=== PATIENT | male | born 1965 ===

== ENCOUNTER 2020-09-07 15:58 | Inpatient (IN) | payer OTHER ==
[2020-09-07] MEDS ORDERED: ACETAMINOPHEN 325 MG TAB ONE (16:21)
[2020-09-07] MEDS ORDERED: ACETAMINOPHEN 325 MG TAB PO ONE (16:25)
--- NOTE | 2020-09-07 17:28 | XRay Report ---
CHEST 2 VIEWS INDICATION / CLINICAL INFORMATION: SOB, COVID+. COMPARISON: None available. FINDINGS: SUPPORT DEVICES: None. HEART / MEDIASTINUM: Upper limits normal heart size. Mediastinal and hilar contours demonstrate no si gnificant abnormality. LUNGS / PLEURA: Irregular patchy and confluent pulmonary opacities worse at the lung bases and around the periphery. No significant effusion. No pneumothorax. ADDITIONAL FINDINGS: No significant additional findings. IMPRESSION: 1. Diffuse bilateral pulmonary airspace disease. Pattern is concerning for atypical/viral pneumonia. Recommend clinical correlation and continued follow-up until resolution. Signer Name: Bulmaro Reddy MD Signed: 09/07/2020 5:23 PM Workstation Name: [id number]
--- NOTE | 2020-09-07 18:58 | Emergency Department Report ---
- General Chief Complaint: Dyspnea/Respdistress Stated Complaint: FEVER PUI?: Yes Source: patient Mode of arrival: Wheelchair Limitations: No Limitations - History of Present Illness Initial Comments: The patient was evaluated in the emergency department for symptoms described in the history of present illness. He/she was evaluated in the context of the global COVID-19 pandemic, which necessitated consideration that the patient might be at risk for infection with the virus that causes COVID-19. Institutional protocols and algorithms that pertain to the evaluation of patients at risk for COVID-19 are in a state of rapid change based on information released by regulatory bodies including the CDC and federal and state organizations. These policies and algorithms were followed during the patient's care in the emergency department. Please note that these policies, procedures and recommendations changed on a rapid basis. 55-year-old male presents to the emergency room for shortness of breath. Patient was recently seen today at [facility] had a negative Covid test but was satting around 87% and was referred for to the emergency room via EMS. Patient denies any past medical history. He states he has been having shortness of breath and difficulty breathing for 1 week. He has had a fever for 4 days. He denies any nausea no vomiting no constipation or diarrhea. Patient denies any past medical history currently takes no medications and has had no known drug allergies. Patient has no surgical history. Patient is and use [employer] patient liaison to translate. His phone number I received was [phone]. His next of contact is Bogdan [phone]. Complaint: fever Onset/Timin -: week(s) Consistency: constant Improves With: nothing Worsens With: nothing Associated Symptoms: fever, shortness of breath. denies: nausea, vomiting, diarrhea Treatments Prior to Arrival: none - Related Data Allergies Allergy/AdvReac Type Severity Reaction Status Date / Time No Known Allergies Allergy Unverified 09/07/20 16:24 ED Review of Systems ROS: Stated complaint: FEVER Other details as noted in HPI Comment: All other systems reviewed and negative ED Past Medical Hx - Past Medical History Previous Medical History?: No - Surgical History Past Surgical History?: No ED Physical Exam - General Limitations: No Limitations General appearance: alert, in no apparent distress - Head Head exam: Present: atraumatic, normocephalic - Eye Eye exam: Present: normal appearance - ENT ENT exam: Present: mucous membranes moist - Respiratory Respiratory exam: Absent: accessory muscle use - Cardiovascular Cardiovascular Exam: Present: regular rate - Neurological Exam Neurological exam: Present: alert, oriented X3, normal gait - Psychiatric Psychiatric exam: Present: normal affect, normal mood - Skin Skin exam: Present: warm, dry, intact, normal color. Absent: rash ED Course Vital Signs 09/07/20 09/07/20 16:14 16:26 Temperature 101.5 F H 101.5 F H Pulse Rate 96 H 83 Respiratory 22 20 Rate Blood Pressure 124/63 Blood Pressure 124/63 [Right] O2 Sat by Pulse 88 87 Oximetry ED Medical Decision Making - Medical Decision Making 55-year-old male presents to the emergency room for shortness of breath. [facility] had a negative Covid test but was satting around 87% and was referred for to the emergency room via EMS. Patient denies any past medical history. He states he has been having shortness of breath and difficulty breathing for 1 week. He has had a fever for 4 days. He denies any nausea no vomiting no constipation or diarrhea. Patient denies any past medical history currently takes no medications and has had no known drug allergies. Patient has no surgical history. Patient is and use [employer] patient liaison to translate. His phone number I received was [phone]. His next of contact is Bogdan [phone]. Critical care attestation.: If time is entered above; I have spent that time in minutes in the direct care of this critically ill patient, excluding procedure time. ED Disposition Clinical Impression: Hypoxic, Suspected 2019 novel coronavirus infection, Shortness of breath Disposition: OP ADMIT IP TO THIS HOSP Is pt being admited?: Yes Does the pt Need Aspirin: Yes Condition: Stable
[2020-09-07 19:04] LABS: Basophils % (Auto) 0.2 % (0.0-1.8); Eosinophils % (Auto) 0.1 % (0.0-4.3); Hematocrit 44.1 % (35.5-45.6); Hemoglobin 15.2 gm/dl (11.8-15.2); Lymphocytes # (Auto) 1.2 K/mm3 (1.2-5.4); Lymphocytes % (Auto) 9.6 % (13.4-35.0); Mean Corpuscular HGB Conc 35 % (32-34); Mean Corpuscular Volume 94 fl (84-94); Monocytes # (Auto) 1.2 K/mm3 (0.0-0.8); Monocytes % (Auto) 10.2 % (0.0-7.3); Platelet Count 210 K/mm3 (140-440); Red Cell Distribution Width 13.9 % (13.2-15.2)
[2020-09-07] MEDS ORDERED: AZITHROMYCIN 500 MG in SODIUM CHLORIDE 0.9% 250ML 250 ML IV ONE (19:19)
[2020-09-07] MEDS ORDERED: dexAMETHasone 4 MG/ML VIAL IV ONE (19:19)
[2020-09-07] MEDS ORDERED: SODIUM CHLORIDE 0.9% 1000 ML 1,000 ML IV ONE (19:23)
[2020-09-07 19:24] LABS: ABG Base Excess 4.7 mmol/L (-2.0-3.0); ABG HCO3 29.7 mmol/L (20.0-26.0); ABG Methemoglobin 0.6 % (0.0-1.5); ABG Oxygen Saturation 91.8 % (95.0-99.0); ABG PCO2 44.9 mm Hg; ABG PH 7.438 pH Units (7.350-7.450); ABG PO2 58.1 mm Hg (80.0-90.0)
[2020-09-07 19:33] LABS: Alanine Aminotransferase 41 units/L (7-56); Albumin 3.8 g/dL (3.9-5); BUN/Creatinine Ratio 15; Blood Urea Nitrogen 12 mg/dL (9-20); Calcium 8.8 mg/dL (8.4-10.2)
--- NOTE | 2020-09-08 05:14 | History and Physical Report ---
History of Present Illness Date of examination: 09/07/20 Date of admission: 09/07/20 19:04 Chief complaint: Cough and fever History of present illness: 55-year-old Nauruan-speaking male with no significant past medical history sent by a [place] clinic for shortness of breath and low oxygen saturations. Apparently the client texted him for coronavirus and was negative. Patient has ran shortness of breath for 1 week. Fever on and off for 4 days. No nausea no vomiting. No constipation or diarrhea. Patient is not on any medications. Her main complaint is shortness of breath and fever for 1 week. No exacerbating or relieving factors. - Past Medical History Previous Medical History?: No - Surgical History Past Surgical History?: No Social history no smoking, alcohol occasionally Family history nothing contributory [employer] ROS: Constitutional fever for 4 days. HEENT no sore throat no post nasal drip no diplopia Neck no neck stiffness no lymph gland enlargement Chest and lungs shortness of breath present. For 1 week. Cough present. CVS no chest pain no diaphoresis no palpitations GI no nausea no vomiting no diarrhea Genitourinary system no dysuria no flank pain Musculoskeletal system no muscle pains no joint pains [employer] no syncope no seizures Skin no rash no itching Psychiatric no depression no homicidal or suicidal tendencies Hematologic no lymphedema or bruising Endocrine no polydipsia no polyuria no cold intolerance no heat intolerance Medications and Allergies Allergies Allergy/AdvReac Type Severity Reaction Status Date / Time No Known Allergies Allergy Verified 09/07/20 19:23 Exam - Constitutional Vitals: Temp Pulse Resp BP Pulse Ox 98.8 F 76 22 125/76 97 09/07/20 20:41 09/08/20 04:53 09/08/20 04:53 09/08/20 04:53 09/08/20 04:53 General appearance: Present: mild distress, well-nourished - EENT Eyes: Present: PERRL ENT: hearing intact, clear oral mucosa - Neck Neck: Present: supple, normal ROM - Respiratory Respiratory effort: normal Respiratory: bilateral: CTA, rhonchi (Scattered) - Cardiovascular Heart rate: 100 Rhythm: regular Heart Sounds: Present: S1 & S2. Absent: rub, click - Extremities Extremities: pulses symmetrical, No edema Peripheral Pulses: within normal limits - Abdominal General gastrointestinal: Present: soft, non-tender, non-distended, normal bowel sounds Male genitourinary: Present: normal - Integumentary Integumentary: Present: clear, warm, dry - Musculoskeletal Musculoskeletal: gait normal, strength equal bilaterally - Psychiatric Psychiatric: appropriate mood/affect, intact judgment & insight - Neurologic Neurologic: CNII-XII intact, moves all extremities - Allied Health Allied health notes reviewed: nursing, case management Results - Labs CBC & Chem 7: 09/07/20 18:47 09/07/20 18:47 Labs: Laboratory Last Values WBC 12.0 K/mm3 (4.5-11.0) H 09/07/20 18:47 RBC 4.70 M/mm3 (3.65-5.03) 09/07/20 18:47 Hgb 15.2 gm/dl (11.8-15.2) 09/07/20 18:47 Hct 44.1 % (35.5-45.6) 09/07/20 18:47 MCV 94 fl (84-94) 09/07/20 18:47 MCH 32 pg (28-32) 09/07/20 18:47 MCHC 35 % (32-34) H 09/07/20 18:47 RDW 13.9 % (13.2-15.2) 09/07/20 18:47 Plt Count 210 K/mm3 (140-440) 09/07/20 18:47 Lymph % (Auto) 9.6 % (13.4-35.0) L 09/07/20 18:47 Sebastian % (Auto) 10.2 % (0.0-7.3) H 09/07/20 18:47 Eos % (Auto) 0.1 % (0.0-4.3) 09/07/20 18:47 Baso % (Auto) 0.2 % (0.0-1.8) 09/07/20 18:47 Lymph # (Auto) 1.2 K/mm3 (1.2-5.4) 09/07/20 18:47 Sebastian # (Auto) 1.2 K/mm3 (0.0-0.8) H 09/07/20 18:47 Eos # (Auto) 0.0 K/mm3 (0.0-0.4) 09/07/20 18:47 Baso # (Auto) 0.0 K/mm3 (0.0-0.1) 09/07/20 18:47 Seg Neutrophils % 79.9 % (40.0-70.0) H 09/07/20 18:47 Seg Neutrophils # 9.6 K/mm3 (1.8-7.7) H 09/07/20 18:47 D-Dimer 276.17 ng/mlDDU (0-234) H 09/07/20 18:47 ABG pH 7.438 pH Units (7.350-7.450) 09/07/20 19:10 ABG pCO2 44.9 mm Hg 09/07/20 19:10 ABG pO2 58.1 mm Hg (80.0-90.0) L 09/07/20 19:10 ABG HCO3 29.7 mmol/L (20.0-26.0) H 09/07/20 19:10 ABG O2 Saturation 91.8 % (95.0-99.0) L 09/07/20 19:10 ABG O2 Content 19.3 (0.0-44) 09/07/20 19:10 ABG Base Excess 4.7 mmol/L (-2.0-3.0) H 09/07/20 19:10 ABG Hemoglobin 15.3 gm/dl (14.0-18.0) 09/07/20 19:10 ABG Carboxyhemoglobin 1.7 % (0.0-5.0) 09/07/20 19:10 ABG Methemoglobin 0.6 % (0.0-1.5) 09/07/20 19:10 Oxyhemoglobin 89.7 % (95.0-99.0) L 09/07/20 19:10 FiO2 21 % 09/07/20 19:10 Sodium 134 mmol/L (137-145) L 09/07/20 18:47 Potassium 4.2 mmol/L (3.6-5.0) 09/07/20 18:47 Chloride 94.3 mmol/L (98-107) L 09/07/20 18:47 Carbon Dioxide 29 mmol/L (22-30) 09/07/20 18:47 Anion Gap 15 mmol/L 09/07/20 18:47 BUN 12 mg/dL (9-20) 09/07/20 18:47 Creatinine 0.8 mg/dL (0.8-1.3) 09/07/20 18:47 Estimated GFR > 60 ml/min 09/07/20 18:47 BUN/Creatinine Ratio 15 % 09/07/20 18:47 Glucose 121 mg/dL (75-100) H 09/07/20 18:47 Glucose 121 mg/dL (75-100) H 09/07/20 18:47 Calcium 8.8 mg/dL (8.4-10.2) 09/07/20 18:47 Ferritin 837.3 ng/mL (30.0-300.0) H 09/07/20 18:47 Total Bilirubin 0.60 mg/dL (0.1-1.2) 09/07/20 18:47 AST 37 units/L (5-40) 09/07/20 18:47 ALT 41 units/L (7-56) 09/07/20 18:47 Alkaline Phosphatase 106 units/L (35-129) 09/07/20 18:47 Lactate Dehydrogenase 455 units/L (91-180) H 09/07/20 18:47 C-Reactive Protein 14.00 mg/dL (0.00-1.30) H 09/07/20 18:47 Total Protein 7.1 g/dL (6.3-8.2) 09/07/20 18:47 Albumin 3.8 g/dL (3.9-5) L 09/07/20 18:47 Albumin/Globulin Ratio 1.2 % 09/07/20 18:47 Acetaminophen 12.3 ug/mL (10.0-30.0) 09/07/20 16:55 - Imaging and Cardiology EKG: report reviewed Chest x-ray: report reviewed Imaging and Cardiology: Chest x-ray Diffuse bilateral pulmonary airspace disease Pattern is concerning for atypical/viral pneumonia Recommend clinical correlation and continued follow-up with resolution Assessment and Plan Advance Directives: Yes (Full code) VTE prophylaxis?: Chemical Plan of care discussed with patient/family: Yes - Patient Problems (1) Acute respiratory failure with hypoxia Current Visit: Yes Status: Acute Plan to address problem: Patient needs oxygen supplementation and titrate to keep oxygen saturation around 95% and more Possible coronavirus infection Treat with antibiotics for possible community-acquired pneumonia even though unlikely Patient started on IV dexamethasone 8 mg daily (2) Suspected 2019 novel coronavirus infection Current Visit: Yes Status: Acute Plan to address problem: Coronavirus PCR) as per protocol ID consult requested (3) Bilateral pneumonia Current Visit: Yes Status: Acute Plan to address problem: Patient started on IV Zithromax and IV Rocephin Can be stopped if procalcitonin is normal (4) Obesity Current Visit: Yes Status: Chronic Qualifiers: Obesity type: due to excess calories Plan to address problem: Patient to follow-up with bariatric surgery as outpatient (5) Hyponatremia Current Visit: Yes Status: Acute Plan to address problem: Very mild (6) DVT prophylaxis Current Visit: Yes Status: Acute Plan to address problem: On Lovenox and GI prophylaxis
[2020-09-08] MEDS ORDERED: ONDANSETRON 4 MG/2 ML INJ IV PRN (05:24)
[2020-09-08] MEDS ORDERED: oxyCODONE /ACETAMINOPHEN 5-325MG TAB PO PRN (05:24)
[2020-09-08] MEDS ORDERED: HYDROmorphone 1 MG/1 ML INJ IV PRN (05:24)
[2020-09-08 07:02] LABS: Basophils % (Auto) 0.1 % (0.0-1.8); Hematocrit 43.1 % (35.5-45.6); Hemoglobin 14.7 gm/dl (11.8-15.2); Lymphocytes # (Auto) 0.7 K/mm3 (1.2-5.4); Lymphocytes % (Auto) 5.7 % (13.4-35.0); Mean Corpuscular HGB Conc 34 % (32-34); Mean Corpuscular Volume 94 fl (84-94); Monocytes # (Auto) 0.7 K/mm3 (0.0-0.8); Monocytes % (Auto) 5.3 % (0.0-7.3); Platelet Count 210 K/mm3 (140-440); Red Cell Distribution Width 13.4 % (13.2-15.2)
[2020-09-08 07:04] LABS: Alanine Aminotransferase 36 units/L (7-56); Albumin 3.6 g/dL (3.9-5); BUN/Creatinine Ratio 18; Blood Urea Nitrogen 14 mg/dL (9-20); Calcium 8.8 mg/dL (8.4-10.2); Hemolysis Index 2
[2020-09-08] MEDS ORDERED: dexAMETHasone 4 MG/ML VIAL IV SCH (10:00)
[2020-09-08] MEDS ORDERED: AZITHROMYCIN 500 MG in SODIUM CHLORIDE 0.9% 250ML 250 ML IV SCH (10:00)
[2020-09-08] MEDS: dexAMETHasone 4 MG/ML VIAL IV SCH (10:50)
[2020-09-08] MEDS: FAMOTIDINE 20 MG TAB PO SCH ×2 (10:50→22:35)
[2020-09-08] MEDS: cefTRIAXone/NS 2 GM/100 ML 2 GM/100 ML BAG IV SCH (10:50)
[2020-09-08] MEDS: ASCORBIC ACID 500 MG TAB PO SCH ×2 (10:51→22:35)
[2020-09-08] MEDS: CHOLECALCIFEROL (VIT D3) 5,000 UNIT TAB PO SCH (10:51)
[2020-09-08] MEDS: ACETAMINOPHEN 325 MG TAB PO PRN (10:55)
--- NOTE | 2020-09-08 17:12 | Progress Note ---
Assessment and Plan - Patient Problems (1) Acute respiratory failure with hypoxia Current Visit: Yes Status: Acute Plan to address problem: Secondary to COVID-19 pneumonia. Oxygenating well. Currently on dexamethasone. 3 L of oxygen. Follow inflammatory markers supportive care. (2) Bilateral pneumonia Current Visit: Yes Status: Acute Plan to address problem: Bilateral pneumonia secondary to COVID-19. Patient currently on dexamethasone. Oxygenating well at 3 L currently. (3) Hyponatremia Current Visit: Yes Status: Acute (4) Obesity Current Visit: Yes Status: Chronic Qualifiers: Obesity type: due to excess calories Body mass index: BMI 33.0-33.9 Plan to address problem: Stressed importance of weight loss discussed risk of obesity and COVID-19. Subjective Date of service: 09/08/20 Principal diagnosis: COVID-19 pneumonia acute respiratory failure. Interval history: Patient feels much better today. Improved breathing. Patient currently at 3 L of O2. Seem to be tolerating well. No new concerns over p.m. If patient maintains oxygenation tomorrow will have him walk and evaluate need for home O2. Objective - Constitutional Vitals: Vital Signs - 12hr 09/08/20 09/08/20 09/08/20 05:11 05:21 05:31 Temperature Pulse Rate Respiratory Rate Blood Pressure 125/76 125/76 125/76 O2 Sat by Pulse 97 95 95 Oximetry 09/08/20 09/08/20 09/08/20 05:41 05:51 06:01 Temperature Pulse Rate Respiratory Rate Blood Pressure 125/76 125/76 125/76 O2 Sat by Pulse 95 94 95 Oximetry 09/08/20 09/08/20 09/08/20 06:11 06:21 06:31 Temperature Pulse Rate Respiratory Rate Blood Pressure 125/76 125/76 125/76 O2 Sat by Pulse 95 95 95 Oximetry 09/08/20 09/08/20 09/08/20 08:00 08:50 12:21 Temperature 98.8 F Pulse Rate 81 91 H Respiratory 18 16 18 Rate Blood Pressure 113/53 110/60 O2 Sat by Pulse 92 94 Oximetry General appearance: Present: no acute distress, well-nourished - EENT Eyes: PERRL, EOM intact ENT: hearing intact, clear oral mucosa Ears: bilateral: normal - Neck Neck: supple, normal ROM - Respiratory Respiratory effort: normal Respiratory: bilateral: CTA, negative: diminished - Breasts Breasts: normal - Cardiovascular Rhythm: regular Heart Sounds: Present: S1 & S2. Absent: gallop, rub Extremities: pulses intact, No edema, normal color, Full ROM - Gastrointestinal General gastrointestinal: Present: soft, non-tender, non-distended, normal bowel sounds - Genitourinary Male genitourinary: normal - Integumentary Integumentary: clear, warm, dry - Musculoskeletal Musculoskeletal: 1, strength equal bilaterally - Neurologic Neurologic: moves all extremities - Psychiatric Psychiatric: memory intact, appropriate mood/affect, intact judgment & insight - Labs CBC & Chem 7: 09/08/20 05:43 09/08/20 05:43 Labs: Abnormal lab results 09/07/20 09/07/20 09/07/20 Range/Units 18:47 18:47 18:47 WBC 12.0 H (4.5-11.0) K/mm3 MCHC 35 H (32-34) % Lymph % (Auto) 9.6 L (13.4-35.0) % Armstrong % (Auto) 10.2 H (0.0-7.3) % Lymph # (Auto) (1.2-5.4) K/mm3 Armstrong # (Auto) 1.2 H (0.0-0.8) K/mm3 Seg Neutrophils % 79.9 H (40.0-70.0) % Seg Neutrophils # 9.6 H (1.8-7.7) K/mm3 D-Dimer 276.17 H (0-234) ng/mlDDU ABG pO2 (80.0-90.0) mm Hg ABG HCO3 (20.0-26.0) mmol/L ABG O2 Saturation (95.0-99.0) % ABG Base Excess (-2.0-3.0) mmol/L Oxyhemoglobin (95.0-99.0) % Sodium 134 L (137-145) mmol/L Chloride 94.3 L (98-107) mmol/L Carbon Dioxide (22-30) mmol/L Glucose 121 H (75-100) mg/dL Hemoglobin A1c (4-6) % Ferritin (30.0-300.0) ng/mL Lactate Dehydrogenase (91-180) units/L C-Reactive Protein (0.00-1.30) mg/dL Albumin 3.8 L (3.9-5) g/dL Coronavirus (PCR) (Negative) 09/07/20 09/07/20 09/07/20 Range/Units 18:47 18:47 19:10 WBC (4.5-11.0) K/mm3 MCHC (32-34) % Lymph % (Auto) (13.4-35.0) % Armstrong % (Auto) (0.0-7.3) % Lymph # (Auto) (1.2-5.4) K/mm3 Armstrong # (Auto) (0.0-0.8) K/mm3 Seg Neutrophils % (40.0-70.0) % Seg Neutrophils # (1.8-7.7) K/mm3 D-Dimer (0-234) ng/mlDDU ABG pO2 58.1 L (80.0-90.0) mm Hg ABG HCO3 29.7 H (20.0-26.0) mmol/L ABG O2 Saturation 91.8 L (95.0-99.0) % ABG Base Excess 4.7 H (-2.0-3.0) mmol/L Oxyhemoglobin 89.7 L (95.0-99.0) % Sodium (137-145) mmol/L Chloride (98-107) mmol/L Carbon Dioxide (22-30) mmol/L Glucose 121 H (75-100) mg/dL Hemoglobin A1c (4-6) % Ferritin 837.3 H (30.0-300.0) ng/mL Lactate Dehydrogenase 455 H (91-180) units/L C-Reactive Protein 14.00 H (0.00-1.30) mg/dL Albumin (3.9-5) g/dL Coronavirus (PCR) (Negative) 09/08/20 09/08/20 09/08/20 Range/Units 05:43 05:43 05:43 WBC 12.8 H (4.5-11.0) K/mm3 MCHC (32-34) % Lymph % (Auto) 5.7 L (13.4-35.0) % Armstrong % (Auto) (0.0-7.3) % Lymph # (Auto) 0.7 L (1.2-5.4) K/mm3 Armstrong # (Auto) (0.0-0.8) K/mm3 Seg Neutrophils % 88.9 H (40.0-70.0) % Seg Neutrophils # 11.4 H (1.8-7.7) K/mm3 D-Dimer (0-234) ng/mlDDU ABG pO2 (80.0-90.0) mm Hg ABG HCO3 (20.0-26.0) mmol/L ABG O2 Saturation (95.0-99.0) % ABG Base Excess (-2.0-3.0) mmol/L Oxyhemoglobin (95.0-99.0) % Sodium (137-145) mmol/L Chloride (98-107) mmol/L Carbon Dioxide 34 H (22-30) mmol/L Glucose 214 H (75-100) mg/dL Hemoglobin A1c 6.7 H (4-6) % Ferritin (30.0-300.0) ng/mL Lactate Dehydrogenase (91-180) units/L C-Reactive Protein (0.00-1.30) mg/dL Albumin 3.6 L (3.9-5) g/dL Coronavirus (PCR) (Negative) 09/08/20 Range/Units 11:04 WBC (4.5-11.0) K/mm3 MCHC (32-34) % Lymph % (Auto) (13.4-35.0) % Armstrong % (Auto) (0.0-7.3) % Lymph # (Auto) (1.2-5.4) K/mm3 Armstrong # (Auto) (0.0-0.8) K/mm3 Seg Neutrophils % (40.0-70.0) % Seg Neutrophils # (1.8-7.7) K/mm3 D-Dimer (0-234) ng/mlDDU ABG pO2 (80.0-90.0) mm Hg ABG HCO3 (20.0-26.0) mmol/L ABG O2 Saturation (95.0-99.0) % ABG Base Excess (-2.0-3.0) mmol/L Oxyhemoglobin (95.0-99.0) % Sodium (137-145) mmol/L Chloride (98-107) mmol/L Carbon Dioxide (22-30) mmol/L Glucose (75-100) mg/dL Hemoglobin A1c (4-6) % Ferritin (30.0-300.0) ng/mL Lactate Dehydrogenase (91-180) units/L C-Reactive Protein (0.00-1.30) mg/dL Albumin (3.9-5) g/dL Coronavirus (PCR) Positive A (Negative)
[2020-09-08] MEDS: ENOXAPARIN 40 MG/0.4 ML INJ SUB-Q SCH (22:36)
[2020-09-09] MEDS ORDERED: AZITHROMYCIN 250 MG TAB PO SCH (10:00)
[2020-09-09] MEDS: cefTRIAXone/NS 2 GM/100 ML 2 GM/100 ML BAG IV SCH (10:43)
[2020-09-09] MEDS: dexAMETHasone 4 MG/ML VIAL IV SCH (10:43)
[2020-09-09] MEDS: FAMOTIDINE 20 MG TAB PO SCH ×2 (10:43→21:09)
[2020-09-09] MEDS: ASCORBIC ACID 500 MG TAB PO SCH ×2 (10:44→21:08)
[2020-09-09] MEDS: CHOLECALCIFEROL (VIT D3) 5,000 UNIT TAB PO SCH (10:44)
[2020-09-09] MEDS: ACETAMINOPHEN 325 MG TAB PO PRN (15:29)
--- NOTE | 2020-09-09 16:05 | Progress Note ---
Assessment and Plan - Patient Problems (1) Acute respiratory failure with hypoxia Current Visit: Yes Status: Acute Plan to address problem: Secondary to COVID-19 pneumonia. Oxygenating well. Currently on dexamethasone. 3 L of oxygen. Follow inflammatory markers supportive care. Anticipate discharge in a.m. (2) Bilateral pneumonia Current Visit: Yes Status: Acute Plan to address problem: Bilateral pneumonia secondary to COVID-19. Patient currently on dexamethasone. Oxygenating well at 3 L currently. Will discontinue antibiotics. Change to p.o . dexamethasone. Anticipate discharge in a.m. (3) Hyponatremia Current Visit: Yes Status: Acute (4) Obesity Current Visit: Yes Status: Chronic Qualifiers: Obesity type: due to excess calories Body mass index: BMI 33.0-33.9 Plan to address problem: Stressed importance of weight loss discussed risk of obesity and COVID-19. Subjective Date of service: 09/09/20 Principal diagnosis: COVID-19 pneumonia acute respiratory failure. Interval history: Patient feels much better today. Improved breathing. Patient currently at 4 L of O2. Seem to be tolerating well. No new concerns over p.m. we will get patient up and walk to evaluate for home O2. Doing well now. Anticipate discharge in a.m.. Objective - Constitutional Vitals: Vital Signs - 12hr 09/09/20 09/09/20 09/09/20 06:33 08:00 10:00 Temperature 98.8 F Pulse Rate 87 Respiratory 20 18 Rate Blood Pressure 109/63 Blood Pressure [Right] O2 Sat by Pulse 93 94 Oximetry 09/09/20 11:30 Temperature 98.6 F Pulse Rate 82 Respiratory Rate Blood Pressure Blood Pressure 135/70 [Right] O2 Sat by Pulse Oximetry General appearance: Present: no acute distress, well-nourished - EENT Eyes: PERRL, EOM intact ENT: hearing intact, clear oral mucosa Ears: bilateral: normal - Neck Neck: supple, normal ROM - Respiratory Respiratory effort: normal Respiratory: bilateral: CTA - Breasts Breasts: normal - Cardiovascular Rhythm: regular Heart Sounds: Present: S1 & S2. Absent: gallop, rub Extremities: pulses intact, No edema, normal color, Full ROM - Gastrointestinal General gastrointestinal: Present: soft, non-tender, non-distended, normal bowel sounds - Genitourinary Male genitourinary: normal - Integumentary Integumentary: clear, warm, dry - Musculoskeletal Musculoskeletal: 1, strength equal bilaterally - Neurologic Neurologic: moves all extremities - Psychiatric Psychiatric: memory intact, appropriate mood/affect, intact judgment & insight - Labs CBC & Chem 7: 09/08/20 05:43 09/08/20 05:43
--- NOTE | 2020-09-09 16:09 | Consultation ---
History of Present Illness - Reason for Consult Consult date: 09/09/20 COVID-19 Requesting physician: CAIT BRODERICK - History of Present Illness The patient is a 55-year-old male with cough, shortness of breath, tested positive for COVID-19. Has been having fevers, currently hypoxic and on oxygen. Review of Systems: reviewed in the chart, unable to obtain, minimize risk of transmission Medications and Allergies Allergies Allergy/AdvReac Type Severity Reaction Status Date / Time No Known Allergies Allergy Verified 09/07/20 19:23 Active Meds: Active Medications Acetaminophen (Acetaminophen 325 Mg Tab) 650 mg PO Q4H PRN PRN Reason: Pain MILD(1-3)/Fever >100.5/FREEMAN Last Admin: 09/09/20 15:29 Dose: 650 mg Documented by: Ascorbic Acid (Ascorbic Acid 500 Mg Tab) 1,000 mg PO BID [facility] Last Admin: 09/09/20 10:44 Dose: 1,000 mg Documented by: Cholecalciferol (Cholecalciferol (Vit D3) 5,000 Unit Tab) 5,000 unit PO DAILY [facility] Last Admin: 09/09/20 10:44 Dose: 5,000 unit Documented by: Dexamethasone (Dexamethasone 4 Mg/Ml Vial) 6 mg IV Q24HR [facility] Stop: 09/16/20 10:01 Last Admin: 09/09/20 10:43 Dose: 6 mg Documented by: Enoxaparin Sodium (Enoxaparin 40 Mg/0.4 Ml Inj) 40 mg SUB-Q QDAY@2200 SHILPA; Protocol Last Admin: 09/08/20 22:36 Dose: 40 mg Documented by: Famotidine (Famotidine 20 Mg Tab) 20 mg PO BID [facility] Last Admin: 09/09/20 10:43 Dose: 20 mg Documented by: Hydromorphone HCl (Hydromorphone 1 Mg/1 Ml Inj) 0.5 mg IV Q3H PRN PRN Reason: Pain , Severe (7-10) REMDESIVIR 200 mg/ Sodium (Chloride) 250 mls @ 500 mls/hr IV ONCE ONE Stop: 09/09/20 16:36 REMDESIVIR 100 mg/ Sodium (Chloride) 250 mls @ 500 mls/hr IV Q24HR@2100 SHILPA Stop: 09/13/20 21:29 Ondansetron HCl (Ondansetron 4 Mg/2 Ml Inj) 4 mg IV Q8H PRN PRN Reason: Nausea And Vomiting Oxycodone/Acetaminophen (Oxycodone /Acetaminophen 5-325mg Tab) 1 tab PO Q6H PRN PRN Reason: Pain, Moderate (4-6) Sodium Chloride (Sodium Chloride 0.9% 10 Ml Flush Syringe) 10 ml IV BID [facility] Last Admin: 09/09/20 10:44 Dose: 10 ml Documented by: Sodium Chloride (Sodium Chloride 0.9% 10 Ml Flush Syringe) 10 ml IV PRN PRN PRN Reason: LINE FLUSH Sodium Chloride (Sodium Chloride 0.9% 50 Ml Ivpb) 50 ml IV Q24HR@2100 [facility] Stop: 09/13/20 21:01 Physical Examination - Physical Exam Narrative exam: Physical Exam (reviewed in chart to minimize risk of transmission) Constitutional: deferred Head, Ears, Nose: deferred Eyes: deferred Neck: deferred Oral: deferred Cardiovascular: deferred Respiratory: deferred GI: deferred Musculoskeletal: deferred Skin: deferred Hem/Lymphatic: deferred Psych: deferred Neurological: deferred - Constitutional Vitals: Vital Signs Temp Pulse Resp BP Pulse Ox 98.6 F 82 18 135/70 94 09/09/20 11:30 09/09/20 11:30 09/09/20 08:00 09/09/20 11:30 09/09/20 10:00 Temperature -Last 24 Hours Temperature 98.6 F Temperature 98.8 F Temperature 99.9 F Temperature 97.4 F Results - Labs CBC & Chem 7: 09/08/20 05:43 09/08/20 05:43 Assessment and Plan Cultures: SARS CoV2 PCR: Positive A/P: 55/M with: #Bilateral pneumonia: Secondary to COVID-19 #Acute hypoxic respiratory failure: On oxygen #Obesity Recs: -continue IV/PO Dexamethasone 6 mg daily x 10 days -IV remdesivir ordered -prophylactic anticoagulation based on d-dimer per hospital protocol -trend ferritin, LDH, d-dimer, CRP every 2-3 days for risk stratification and to assess disease progression -Procalcitonin is low, antibiotics discontinued Caden Izquierdo MD, FACP [facility] ([facility] O: [phone] F: [phone]
[2020-09-09] MEDS ORDERED: REMDESIVIR 100 MG VIAL IV ONE (17:00)
[2020-09-09] MEDS ORDERED: REMDESIVIR 200 MG in SODIUM CHLORIDE 0.9% 250ML 250 ML IV ONE (17:00)
[2020-09-09] MEDS: SODIUM CHLORIDE 0.9% 50 ML IVPB IV SCH ×2 (18:22→21:10)
[2020-09-09] MEDS: ENOXAPARIN 40 MG/0.4 ML INJ SUB-Q SCH (21:08)
--- NOTE | 2020-09-10 08:40 | Discharge Summary ---
Providers - Providers Date of Admission: 09/07/20 19:04 Date of discharge: 09/10/20 Attending physician: KARAN ORTIZ 09/08/20 05:24 Consult to Physician [CONS] Routine Comment: Consulting Provider: RAPHAEL ZARAGOZA Physician Instructions: Reason For Exam: Bilateral pneumonia Primary care physician: SAILING OFFICER Hospitalization Condition: Stable Hospital course: 55-year-old male presented with arthralgias myalgias hypoxemia. Bilateral pneumonia was diagnosed with Covid pneumonia. Patient was stable for greater than 48 hours. Was not requiring O2 upon discharge. Patient was stable with 2 L throughout hospital stay. Procalcitonin was low. We will continue dexamethasone for to complete 10 days. Completed remdesivir stable for discharge. Disposition: - TO HOME OR SELFCARE - Discharge Diagnoses (1) Acute respiratory failure with hypoxia Status: Acute Comment: Resolved secondary to COVID-19 pneumonia. (2) Bilateral pneumonia Status: Acute Comment: Secondary to COVID-19 pneumonia dexamethasone. Inflammatory markers were not that high. (3) Obesity Status: Chronic Qualifiers: Obesity type: due to excess calories Body mass index: BMI 33.0-33.9 Comment: Patient educated about the dangers of obesity and cardiovascular disease and COVID-19. Core Measure Documentation - Palliative Care Palliative Care/ Comfort Measures: Not Applicable Exam - Constitutional Vitals: Temp Pulse Resp BP Pulse Ox 97.3 F L 75 22 111/67 85 09/10/20 06:54 09/10/20 06:54 09/10/20 06:54 09/10/20 06:54 09/10/20 06:54 General appearance: Present: no acute distress, well-nourished - EENT Eyes: Present: PERRL ENT: hearing intact, clear oral mucosa - Neck Neck: Present: supple, normal ROM - Respiratory Respiratory effort: normal Respiratory: bilateral: CTA - Cardiovascular Heart Sounds: Present: S1 & S2. Absent: rub, click - Extremities Extremities: pulses symmetrical, No edema Peripheral Pulses: within normal limits - Abdominal General gastrointestinal: Present: soft, non-tender, non-distended, normal bowel sounds Male genitourinary: Present: normal - Integumentary Integumentary: Present: clear, warm, dry - Musculoskeletal Musculoskeletal: gait normal, strength equal bilaterally - Psychiatric Psychiatric: appropriate mood/affect, intact judgment & insight - Neurologic Neurologic: CNII-XII intact, moves all extremities Plan Activity: no restrictions Diet: regular Follow up with: PRIMARY CARE, [Primary Care Provider] - 7 Days Prescriptions: Dexamethasone 6 mg PO DAILY #7 tablet predniSONE 10 mg PO .TAPER #48 tab Ascorbic Acid [Vitamin C] 1,000 mg PO BID #20 tablet Cholecalciferol (Vitamin D3) [Vitamin D3] 5,000 unit PO DAILY #14 tablet Azithromycin [Zithromax TAB] 250 mg PO QDAY #7 tablet
[2020-09-10] MEDS: FAMOTIDINE 20 MG TAB PO SCH ×2 (09:42→22:26)
[2020-09-10] MEDS: ASCORBIC ACID 500 MG TAB PO SCH ×2 (09:42→22:26)
[2020-09-10] MEDS: dexAMETHasone 4 MG/ML VIAL IV SCH (09:42)
[2020-09-10] MEDS: CHOLECALCIFEROL (VIT D3) 5,000 UNIT TAB PO SCH (09:44)
--- NOTE | 2020-09-10 13:39 | Progress Note ---
Assessment and Plan Cultures: SARS CoV2 PCR: Positive A/P: 55/M with: #Bilateral pneumonia: Secondary to COVID-19 #Acute hypoxic respiratory failure: remains on oxygen #Obesity Recs: -continue IV/PO Dexamethasone 6 mg daily x 10 days -continue IV remdesivir D2 -prophylactic anticoagulation based on d-dimer per hospital protocol -trend ferritin, LDH, d-dimer, CRP every 2-3 days for risk stratification and to assess disease progression -Procalcitonin is low, antibiotics not needed Caden Izquierdo MD, FACP [facility] ([facility] O: [phone] F: [phone] Subjective Date of service: 09/10/20 Principal diagnosis: COVID-19 pneumonia acute respiratory failure. Interval history: No fever. Remains on oxygen. Objective - Exam Narrative Exam: Physical Exam (reviewed in chart to minimize risk of transmission) Constitutional: deferred Head, Ears, Nose: deferred Eyes: deferred Neck: deferred Oral: deferred Cardiovascular: deferred Respiratory: deferred GI: deferred Musculoskeletal: deferred Skin: deferred Hem/Lymphatic: deferred Psych: deferred Neurological: deferred - Constitutional Vitals: Vital Signs Temp Pulse Resp BP Pulse Ox 97.3 F L 75 22 111/67 85 09/10/20 06:54 09/10/20 06:54 09/10/20 06:54 09/10/20 06:54 09/10/20 06:54 Temperature -Last 24 Hours Temperature 97.3 F Temperature 97.7 F Temperature 98.7 F - Labs CBC & Chem 7: 09/08/20 05:43 09/08/20 05:43
[2020-09-10 13:55] LABS: Alanine Aminotransferase 62 units/L (7-56); Albumin 3.1 g/dL (3.9-5); BUN/Creatinine Ratio 24; Bilirubin,Direct < 0.2 mg/dL (0-0.2); Blood Urea Nitrogen 17 mg/dL (9-20); Calcium 8.6 mg/dL (8.4-10.2); Hemolysis Index 24
--- NOTE | 2020-09-10 17:43 | Progress Note ---
Assessment and Plan - Patient Problems (1) Acute respiratory failure with hypoxia Current Visit: Yes Status: Acute Plan to address problem: Secondary to COVID-19 pneumonia. Oxygenating well. Currently on dexamethasone. 3 L of oxygen. Follow inflammatory markers supportive care. Anticipate discharge in a.m. (2) Bilateral pneumonia Current Visit: Yes Status: Acute Plan to address problem: Bilateral pneumonia secondary to COVID-19. Patient currently on dexamethasone. Oxygenating well at 3 L currently. Will discontinue antibiotics. Change to p.o . dexamethasone. Anticipate discharge in a.m. (3) Hyponatremia Current Visit: Yes Status: Resolved Plan to address problem: Resolved. (4) Obesity Current Visit: Yes Status: Chronic Qualifiers: Obesity type: due to excess calories Body mass index: BMI 33.0-33.9 Plan to address problem: Stressed importance of weight loss discussed risk of obesity and COVID-19. Subjective Date of service: 09/10/20 Principal diagnosis: COVID-19 pneumonia acute respiratory failure. Interval history: Patient continues to do better. Wean down from 4 L now down to 3 L. Patient saturations with walking went down to 83%. Became somewhat hypoxic. Not quite ready for discharge. Anticipate discharge in the a.m. Patient will be complete remdesivir and give dexamethasone p.o. for discharge. Objective - Constitutional Vitals: Vital Signs - 12hr 09/10/20 09/10/20 09/10/20 06:44 06:54 11:51 Temperature 97.3 F L 98.7 F Pulse Rate 75 65 Respiratory 18 22 24 Rate Blood Pressure 111/67 115/75 O2 Sat by Pulse 85 90 Oximetry General appearance: Present: no acute distress, well-nourished - EENT Eyes: PERRL, EOM intact ENT: hearing intact, clear oral mucosa Ears: bilateral: normal - Neck Neck: supple, normal ROM - Respiratory Respiratory effort: normal Respiratory: bilateral: CTA - Breasts Breasts: normal - Cardiovascular Rhythm: regular Heart Sounds: Present: S1 & S2. Absent: gallop, rub Extremities: pulses intact, No edema, normal color, Full ROM - Gastrointestinal General gastrointestinal: Present: soft, non-tender, non-distended, normal bowel sounds - Genitourinary Male genitourinary: normal - Integumentary Integumentary: clear, warm, dry - Musculoskeletal Musculoskeletal: 1, strength equal bilaterally - Neurologic Neurologic: moves all extremities - Psychiatric Psychiatric: memory intact, appropriate mood/affect, intact judgment & insight - Labs CBC & Chem 7: 09/08/20 05:43 09/10/20 12:31 Labs: Abnormal lab results 09/10/20 Range/Units 12:31 Carbon Dioxide 32 H (22-30) mmol/L Creatinine 0.7 L (0.8-1.3) mg/dL Glucose 232 H (75-100) mg/dL ALT 62 H (7-56) units/L Albumin 3.1 L (3.9-5) g/dL
[2020-09-10] MEDS: REMDESIVIR 100 MG in SODIUM CHLORIDE 0.9% 250ML 250 ML IV SCH (22:26)
[2020-09-10] MEDS: ENOXAPARIN 40 MG/0.4 ML INJ SUB-Q SCH (22:26)
[2020-09-10] MEDS: SODIUM CHLORIDE 0.9% 50 ML IVPB IV SCH (22:27)
[2020-09-11] MEDS: DEXAMETHASONE 4 MG TAB PO SCH (10:02)
[2020-09-11] MEDS: CHOLECALCIFEROL (VIT D3) 5,000 UNIT TAB PO SCH (10:02)
[2020-09-11] MEDS: ASCORBIC ACID 500 MG TAB PO SCH ×2 (10:02→23:37)
[2020-09-11] MEDS: FAMOTIDINE 20 MG TAB PO SCH ×2 (10:02→23:37)
--- NOTE | 2020-09-11 11:07 | Progress Note ---
Assessment and Plan Cultures: SARS CoV2 PCR: Positive A/P: 55/M with: #Bilateral pneumonia: Secondary to COVID-19 #Acute hypoxic respiratory failure: remains on oxygen, but being weaned. #Obesity Recs: -continue IV/PO Dexamethasone 6 mg daily x 10 days -continue IV remdesivir D3 -prophylactic anticoagulation based on d-dimer per hospital protocol -trend ferritin, LDH, d-dimer, CRP every 2-3 days for risk stratification and to assess disease progression -get ambulatory sats in AM, home oxgen evaluation and consider discharge if better Caden Izquierdo MD, FACP [facility], [place] [facility] O: [phone] F: [phone] Subjective Date of service: 09/11/20 Principal diagnosis: COVID-19 pneumonia acute respiratory failure. Interval history: No fever. Remains on oxygen, down to nasal cannula. Objective - Exam Narrative Exam: Physical Exam (reviewed in chart to minimize risk of transmission) Constitutional: deferred Head, Ears, Nose: deferred Eyes: deferred Neck: deferred Oral: deferred Cardiovascular: deferred Respiratory: deferred GI: deferred Musculoskeletal: deferred Skin: deferred Hem/Lymphatic: deferred Psych: deferred Neurological: deferred - Constitutional Vitals: Vital Signs Temp Pulse Resp BP Pulse Ox 98.7 F 59 L 16 125/78 94 09/11/20 06:31 09/11/20 06:31 09/11/20 06:31 09/11/20 06:31 09/11/20 06:31 Temperature -Last 24 Hours Temperature 98.7 F Temperature 98.8 F Temperature 99.2 F Temperature 98.7 F - Labs CBC & Chem 7: 09/08/20 05:43 09/10/20 12:31 Labs: Abnormal lab results 09/10/20 Range/Units 12:31 Carbon Dioxide 32 H (22-30) mmol/L Creatinine 0.7 L (0.8-1.3) mg/dL Glucose 232 H (75-100) mg/dL ALT 62 H (7-56) units/L Albumin 3.1 L (3.9-5) g/dL
[2020-09-11] MEDS: ACETAMINOPHEN 325 MG TAB PO PRN (20:39)
[2020-09-11] MEDS: ENOXAPARIN 40 MG/0.4 ML INJ SUB-Q SCH (23:36)
[2020-09-11] MEDS: REMDESIVIR 100 MG in SODIUM CHLORIDE 0.9% 250ML 250 ML IV SCH (23:36)
[2020-09-11] MEDS: SODIUM CHLORIDE 0.9% 50 ML IVPB IV SCH (23:37)
[2020-09-12] MEDS: CHOLECALCIFEROL (VIT D3) 5,000 UNIT TAB PO SCH (09:50)
[2020-09-12] MEDS: ASCORBIC ACID 500 MG TAB PO SCH ×2 (09:50→21:50)
[2020-09-12] MEDS: FAMOTIDINE 20 MG TAB PO SCH ×2 (09:50→21:50)
[2020-09-12] MEDS: DEXAMETHASONE 4 MG TAB PO SCH (09:50)
--- NOTE | 2020-09-12 14:33 | Progress Note ---
Assessment and Plan Cultures: SARS CoV2 PCR: Positive A/P: 55/M with: #Bilateral pneumonia: Secondary to COVID-19 #Acute hypoxic respiratory failure: remains on oxygen, but being weaned. #Obesity Recs: -continue IV/PO Dexamethasone 6 mg daily x 10 days -continue IV remdesivir D4 -prophylactic anticoagulation based on d-dimer per hospital protocol -trend ferritin, LDH, d-dimer, CRP every 2-3 days for risk stratification and to assess disease progression -get ambulatory sats in AM, home oxgen evaluation and consider discharge if better Caden Izquierdo MD, FACP [facility] O: [phone] F: [phone] Subjective Date of service: 09/12/20 Principal diagnosis: COVID-19 pneumonia acute respiratory failure. Interval history: No fever. Remains on oxygen, on nasal cannula. Objective - Exam Narrative Exam: Physical Exam (reviewed in chart to minimize risk of transmission) Constitutional: deferred Head, Ears, Nose: deferred Eyes: deferred Neck: deferred Oral: deferred Cardiovascular: deferred Respiratory: deferred GI: deferred Musculoskeletal: deferred Skin: deferred Hem/Lymphatic: deferred Psych: deferred Neurological: deferred - Constitutional Vitals: Vital Signs Temp Pulse Resp BP Pulse Ox 98.6 F 71 20 105/69 91 09/12/20 12:41 09/12/20 12:41 09/12/20 12:41 09/12/20 12:41 09/12/20 12:41 Temperature -Last 24 Hours Temperature 98.6 F Temperature 97.3 F Temperature 97.4 F Temperature 97.8 F - Labs CBC & Chem 7: 09/08/20 05:43 09/10/20 12:31 Labs: Abnormal lab results 09/11/20 Range/Units 21:12 POC Glucose 304 H (70-105) mg/dL
--- NOTE | 2020-09-12 17:57 | Progress Note ---
Assessment and Plan - Patient Problems (1) Acute respiratory failure with hypoxia Current Visit: Yes Status: Acute Plan to address problem: Patient needs oxygen supplementation and titrate to keep oxygen saturation around 95% and more Possible coronavirus infection Treat with antibiotics for possible community-acquired pneumonia even though unlikely Patient started on IV dexamethasone 8 mg daily (2) Suspected 2019 novel coronavirus infection Current Visit: Yes Status: Acute Plan to address problem: Coronavirus PCR) as per protocol Covid positive Covid positive- continue IV/PO Dexamethasone 6 mg daily x 10 days -continue IV remdesivir D3 -prophylactic anticoagulation based on d-dimer per hospital protocol -trend ferritin, LDH, d-dimer, CRP every 2-3 days for risk stratification and to assess disease progression -get ambulatory sats in AM, home oxgen evaluation and consider discharge if better (3) Bilateral pneumonia Current Visit: Yes Status: Acute Plan to address problem: Patient started on IV Zithromax and IV Rocephin Can be stopped if procalcitonin is normal (4) Obesity Current Visit: Yes Status: Chronic Qualifiers: Obesity type: due to excess calories Body mass index: BMI 33.0-33.9 Plan to address problem: Patient to follow-up with bariatric surgery as outpatient (5) Hyponatremia Current Visit: Yes Status: Resolved Plan to address problem: Very mild (6) DVT prophylaxis Current Visit: Yes Status: Acute Plan to address problem: On Lovenox and GI prophylaxis Subjective Date of service: 09/11/20 Principal diagnosis: COVID-19 pneumonia acute respiratory failure. Interval history: Subjective Date of service: 09/11/20 Principal diagnosis: COVID-19 pneumonia acute respiratory failure. Interval history: Patient continues to do better. Wean down from 4 L now down to 3 L. Patient saturations with walking went down to 83%. Became somewhat hypoxic. Not quite ready for discharge. Anticipate discharge in the a.m. Patient will be complete remdesivir and give dexamethasone p.o. for discharge. Objective - Constitutional Vitals: Vital Signs - 12hr 09/12/20 12:41 Temperature 98.6 F Pulse Rate 71 Respiratory 20 Rate Blood Pressure 105/69 O2 Sat by Pulse 91 Oximetry General appearance: Present: no acute distress, well-nourished - EENT Eyes: PERRL, EOM intact ENT: hearing intact, clear oral mucosa Ears: bilateral: normal - Neck Neck: supple, normal ROM - Respiratory Respiratory effort: normal Respiratory: bilateral: CTA - Breasts Breasts: normal - Cardiovascular Heart rate: 78 Rhythm: regular Heart Sounds: Present: S1 & S2. Absent: gallop, rub Extremities: pulses intact, No edema, normal color, Full ROM - Gastrointestinal General gastrointestinal: Present: soft, non-tender, non-distended, normal bowel sounds - Genitourinary Male genitourinary: normal - Integumentary Integumentary: clear, warm, dry - Musculoskeletal Musculoskeletal: 1, strength equal bilaterally - Neurologic Neurologic: moves all extremities - Psychiatric Psychiatric: memory intact, appropriate mood/affect, intact judgment & insight - Labs CBC & Chem 7: 09/08/20 05:43 09/10/20 12:31 Labs: Abnormal lab results 09/11/20 Range/Units 21:12 POC Glucose 304 H (70-105) mg/dL
--- NOTE | 2020-09-12 18:31 | Progress Note ---
Assessment and Plan - Patient Problems (1) Acute respiratory failure with hypoxia Current Visit: Yes Status: Acute Plan to address problem: Patient needs oxygen supplementation and titrate to keep oxygen saturation around 95% and more Possible coronavirus infection Treat with antibiotics for possible community-acquired pneumonia even though unlikely Patient started on IV dexamethasone 8 mg daily (2) Suspected 2019 novel coronavirus infection Current Visit: Yes Status: Acute Plan to address problem: Coronavirus PCR) as per protocol Covid positive Covid positive- continue IV/PO Dexamethasone 6 mg daily x 10 days -continue IV remdesivir D4 -prophylactic anticoagulation based on d-dimer per hospital protocol -trend ferritin, LDH, d-dimer, CRP every 2-3 days for risk stratification and to assess disease progression -get ambulatory sats in AM, home oxgen evaluation and consider discharge if better Will try to discharge tomorrow if his oxygen requirements are below 2 L Patient will complete 5 days of remdesivir tomorrow (3) Bilateral pneumonia Current Visit: Yes Status: Acute Plan to address problem: Patient started on IV Zithromax and IV Rocephin Can be stopped if procalcitonin is normal (4) Obesity Current Visit: Yes Status: Chronic Qualifiers: Obesity type: due to excess calories Body mass index: BMI 33.0-33.9 Plan to address problem: Patient to follow-up with bariatric surgery as outpatient (5) Hyponatremia Current Visit: Yes Status: Resolved Plan to address problem: Very mild (6) DVT prophylaxis Current Visit: Yes Status: Acute Plan to address problem: On Lovenox and GI prophylaxis Subjective Date of service: 09/12/20 Principal diagnosis: COVID-19 pneumonia acute respiratory failure. Interval history: Subjective Date of service: 09/11/20 Principal diagnosis: COVID-19 pneumonia acute respiratory failure. Interval history: Patient continues to do better. Wean down from 4 L now down to 3 L. Patient saturations with walking went down to 83%. Became somewhat hypoxic. Not quite ready for discharge. Anticipate discharge in the a.m. Patient will be complete remdesivir and give dexamethasone p.o. for discharge. Objective - Constitutional Vitals: Vital Signs - 12hr 09/12/20 12:41 Temperature 98.6 F Pulse Rate 71 Respiratory 20 Rate Blood Pressure 105/69 O2 Sat by Pulse 91 Oximetry General appearance: Present: no acute distress, well-nourished - EENT Eyes: PERRL, EOM intact ENT: hearing intact, clear oral mucosa Ears: bilateral: normal - Neck Neck: supple, normal ROM - Respiratory Respiratory effort: normal Respiratory: bilateral: CTA - Breasts Breasts: normal - Cardiovascular Heart rate: 78 Rhythm: regular Heart Sounds: Present: S1 & S2. Absent: gallop, rub Extremities: pulses intact, No edema, normal color, Full ROM - Gastrointestinal General gastrointestinal: Present: soft, non-tender, non-distended, normal bowel sounds - Genitourinary Male genitourinary: normal - Integumentary Integumentary: clear, warm, dry - Musculoskeletal Musculoskeletal: 1, strength equal bilaterally - Neurologic Neurologic: moves all extremities - Psychiatric Psychiatric: memory intact, appropriate mood/affect, intact judgment & insight - Labs CBC & Chem 7: 09/08/20 05:43 09/10/20 12:31 Labs: Abnormal lab results 09/11/20 Range/Units 21:12 POC Glucose 304 H (70-105) mg/dL
[2020-09-12] MEDS: REMDESIVIR 100 MG in SODIUM CHLORIDE 0.9% 250ML 250 ML IV SCH (21:49)
[2020-09-12] MEDS: SODIUM CHLORIDE 0.9% 50 ML IVPB IV SCH (21:50)
[2020-09-12] MEDS: ENOXAPARIN 40 MG/0.4 ML INJ SUB-Q SCH (21:50)
[2020-09-13] MEDS: CHOLECALCIFEROL (VIT D3) 5,000 UNIT TAB PO SCH (09:42)
[2020-09-13] MEDS: ASCORBIC ACID 500 MG TAB PO SCH ×2 (09:42→22:28)
[2020-09-13] MEDS: DEXAMETHASONE 4 MG TAB PO SCH (09:43)
[2020-09-13] MEDS: FAMOTIDINE 20 MG TAB PO SCH ×2 (09:43→22:27)
--- NOTE | 2020-09-13 14:59 | Progress Note ---
Assessment and Plan Cultures: SARS CoV2 PCR: Positive A/P: 55/M with: #Bilateral pneumonia: Secondary to COVID-19 #Acute hypoxic respiratory failure: remains on oxygen, up to HFNC. #Obesity Recs: -continue IV/PO Dexamethasone 6 mg daily x 10 days -continue IV remdesivir, D5 -prophylactic anticoagulation based on d-dimer per hospital protocol -trend ferritin, LDH, d-dimer, CRP every 2-3 days for risk stratification and to assess disease progression -markers ordered Caden Izquierdo MD, FACP [facility], [place] O: [phone] F: [phone] Subjective Date of service: 09/13/20 Principal diagnosis: COVID-19 pneumonia acute respiratory failure. Interval history: No fever. Remains on oxygen, up to HFNC. Objective - Exam Narrative Exam: Physical Exam (reviewed in chart to minimize risk of transmission) Constitutional: deferred Head, Ears, Nose: deferred Eyes: deferred Neck: deferred Oral: deferred Cardiovascular: deferred Respiratory: deferred GI: deferred Musculoskeletal: deferred Skin: deferred Hem/Lymphatic: deferred Psych: deferred Neurological: deferred - Constitutional Vitals: Vital Signs Temp Pulse Resp BP Pulse Ox 97.3 F L 48 L 18 116/68 97 09/13/20 06:17 09/13/20 06:17 09/13/20 06:17 09/13/20 06:17 09/13/20 09:49 Temperature -Last 24 Hours Temperature 97.3 F Temperature 97.4 F Temperature 97.0 F - Labs CBC & Chem 7: 09/08/20 05:43 09/10/20 12:31
[2020-09-13] MEDS: ENOXAPARIN 40 MG/0.4 ML INJ SUB-Q SCH (22:27)
[2020-09-13] MEDS: SODIUM CHLORIDE 0.9% 50 ML IVPB IV SCH (22:29)
[2020-09-13] MEDS: REMDESIVIR 100 MG in SODIUM CHLORIDE 0.9% 250ML 250 ML IV SCH (22:29)
[2020-09-14 00:57] LABS: C-Reactive Protein 1.4 mg/dL (0.00-1.30)
--- NOTE | 2020-09-14 08:49 | Progress Note ---
Assessment and Plan - Patient Problems (1) Acute respiratory failure with hypoxia Current Visit: Yes Status: Acute Plan to address problem: Patient needs oxygen supplementation and titrate to keep oxygen saturation around 95% and more Possible coronavirus infection Treat with antibiotics for possible community-acquired pneumonia even though unlikely Patient started on IV dexamethasone 8 mg daily On 6 liters (2) Suspected 2019 novel coronavirus infection Current Visit: Yes Status: Acute Plan to address problem: Coronavirus PCR) as per protocol Covid positive Covid positive- continue IV/PO Dexamethasone 6 mg daily x 10 days -continue IV remdesivir D4 -prophylactic anticoagulation based on d-dimer per hospital protocol -trend ferritin, LDH, d-dimer, CRP every 2-3 days for risk stratification and to assess disease progression -get ambulatory sats in AM, home oxgen evaluation and consider discharge if better Will try to discharge tomorrow if his oxygen requirements are below 2 L Patient will completed 5 days of remdesivir (3) Bilateral pneumonia Current Visit: Yes Status: Acute Plan to address problem: Patient started on IV Zithromax and IV Rocephin Can be stopped if procalcitonin is normal (4) Obesity Current Visit: Yes Status: Chronic Qualifiers: Obesity type: due to excess calories Body mass index: BMI 33.0-33.9 Plan to address problem: Patient to follow-up with bariatric surgery as outpatient (5) Hyponatremia Current Visit: Yes Status: Resolved Plan to address problem: Very mild (6) DVT prophylaxis Current Visit: Yes Status: Acute Plan to address problem: On Lovenox and GI prophylaxis Subjective Date of service: 09/13/20 Principal diagnosis: COVID-19 pneumonia acute respiratory failure. Interval history: Subjective Date of service: 09/11/20 Principal diagnosis: COVID-19 pneumonia acute respiratory failure. Interval history: Patient continues to do better. Wean down from 4 L now down to 3 L. Patient saturations with walking went down to 83%. Became somewhat hypoxic. Not quite ready for discharge. Anticipate discharge in the a.m. Patient will be complete remdesivir and give dexamethasone p.o. for discharge. 09/12/20 Still on 6 liters oxygen 09/13/20 Sx better On 6 liters O2 Objective - Constitutional Vitals: Vital Signs - 12hr 09/13/20 09/13/20 21:31 23:00 Temperature 98.7 F Pulse Rate 55 L Respiratory 18 Rate Blood Pressure 136/81 O2 Sat by Pulse 99 96 Oximetry General appearance: Present: mild distress, well-nourished - EENT Eyes: PERRL, EOM intact ENT: hearing intact, clear oral mucosa Ears: bilateral: normal - Neck Neck: supple, normal ROM - Respiratory Respiratory effort: normal Respiratory: bilateral: CTA, rhonchi (Scattered) - Breasts Breasts: normal - Cardiovascular Rhythm: regular Heart Sounds: Present: S1 & S2. Absent: gallop, rub Extremities: pulses intact, No edema, normal color, Full ROM - Gastrointestinal General gastrointestinal: Present: soft, non-tender, non-distended, normal bowel sounds - Genitourinary Male genitourinary: normal - Integumentary Integumentary: clear, warm, dry - Musculoskeletal Musculoskeletal: 1, strength equal bilaterally - Neurologic Neurologic: moves all extremities - Psychiatric Psychiatric: memory intact, appropriate mood/affect, intact judgment & insight - Labs CBC & Chem 7: 09/08/20 05:43 09/10/20 12:31 Labs: Abnormal lab results 09/13/20 09/13/20 Range/Units 23:23 23:23 Ferritin 404.3 H (30.0-300.0) ng/mL Lactate Dehydrogenase 259 H (91-180) units/L C-Reactive Protein 1.40 H (0.00-1.30) mg/dL
[2020-09-14] MEDS: FAMOTIDINE 20 MG TAB PO SCH ×2 (10:47→21:54)
[2020-09-14] MEDS: ASCORBIC ACID 500 MG TAB PO SCH ×2 (10:48→21:54)
[2020-09-14] MEDS: DEXAMETHASONE 4 MG TAB PO SCH (10:48)
[2020-09-14] MEDS: CHOLECALCIFEROL (VIT D3) 5,000 UNIT TAB PO SCH (10:48)
--- NOTE | 2020-09-14 15:41 | Progress Note ---
Assessment and Plan - Patient Problems (1) Coronavirus infection Current Visit: Yes Status: Acute Plan to address problem: Coronavirus protocol: Supplemental oxygen, pulse oximetry, nebulizer therapy, IV steroid therapy, IV antibiotic therapy, contact precautions, isolation precautions, wean supplemental oxygen as tolerated (2) Obesity hypoventilation syndrome Current Visit: Yes Status: Acute Plan to address problem: Balanced diet, increase physical activity, outpatient pulmonary follow-up for sleep study. (3) Acute respiratory failure with hypoxia Current Visit: Yes Status: Acute Plan to address problem: Supplemental oxygen, pulse oximetry, chest x-ray, nebulizer therapy, prone positioning while in bed, supportive care. (4) Bilateral pneumonia Current Visit: Yes Status: Acute Plan to address problem: Pneumonia protocol: IV antibiotic therapy, supplemental oxygen, pulse oximetry. Blood culture. (5) DVT prophylaxis Current Visit: Yes Status: Acute Plan to address problem: SCD to bilateral lower extremities while in bed, prophylactic anticoagulation. History Interval history: 55 YO Male HD #6 with acute hypoxemic respiratory failure, coronavirus infection, pneumonia, obesity hypoventilation syndrome. Patient remains on supplemental oxygen at 6 L/min. Patient acknowledges shortness of breath with exertion. Patient denies pain. No reported nursing events. Hospitalist Physical - Constitutional Vitals: Temp Pulse Resp BP Pulse Ox 99.1 F 57 L 18 114/67 96 09/14/20 11:24 09/14/20 11:24 09/14/20 11:24 09/14/20 11:24 09/14/20 11:24 General appearance: Present: mild distress, well-nourished, obese - EENT Eyes: Present: PERRL, EOM intact ENT: hearing intact - Neck Neck: Present: supple - Respiratory Respiratory effort: labored Respiratory: bilateral: diminished, rhonchi - Cardiovascular Rhythm: regular Heart Sounds: Present: S1 & S2 - Extremities Extremities: no ischemia Peripheral Pulses: within normal limits - Abdominal General gastrointestinal: soft, non-tender, non-distended - Integumentary Integumentary: Present: clear, dry - Psychiatric Psychiatric: appropriate mood/affect, cooperative - Neurologic Neurologic: CNII-XII intact Results - Labs CBC & Chem 7: 09/14/20 15:25 09/14/20 15:25 Labs: Laboratory Last Values WBC 12.8 K/mm3 (4.5-11.0) H 09/08/20 05:43 RBC 4.60 M/mm3 (3.65-5.03) 09/08/20 05:43 Hgb 14.7 gm/dl (11.8-15.2) 09/08/20 05:43 Hct 43.1 % (35.5-45.6) 09/08/20 05:43 MCV 94 fl (84-94) 09/08/20 05:43 MCH 32 pg (28-32) 09/08/20 05:43 MCHC 34 % (32-34) 09/08/20 05:43 RDW 13.4 % (13.2-15.2) 09/08/20 05:43 Plt Count 210 K/mm3 (140-440) 09/08/20 05:43 Lymph % (Auto) 5.7 % (13.4-35.0) L 09/08/20 05:43 [place] % (Auto) 5.3 % (0.0-7.3) 09/08/20 05:43 Eos % (Auto) 0.0 % (0.0-4.3) 09/08/20 05:43 Baso % (Auto) 0.1 % (0.0-1.8) 09/08/20 05:43 Lymph # (Auto) 0.7 K/mm3 (1.2-5.4) L 09/08/20 05:43 [place] # (Auto) 0.7 K/mm3 (0.0-0.8) 09/08/20 05:43 Eos # (Auto) 0.0 K/mm3 (0.0-0.4) 09/08/20 05:43 Baso # (Auto) 0.0 K/mm3 (0.0-0.1) 09/08/20 05:43 Seg Neutrophils % 88.9 % (40.0-70.0) H 09/08/20 05:43 Seg Neutrophils # 11.4 K/mm3 (1.8-7.7) H 09/08/20 05:43 D-Dimer 135.00 ng/mlDDU (0-234) 09/13/20 23:23 ABG pH 7.438 pH Units (7.350-7.450) 09/07/20 19:10 ABG pCO2 44.9 mm Hg 09/07/20 19:10 ABG pO2 58.1 mm Hg (80.0-90.0) L 09/07/20 19:10 ABG HCO3 29.7 mmol/L (20.0-26.0) H 09/07/20 19:10 ABG O2 Saturation 91.8 % (95.0-99.0) L 09/07/20 19:10 ABG O2 Content 19.3 (0.0-44) 09/07/20 19:10 ABG Base Excess 4.7 mmol/L (-2.0-3.0) H 09/07/20 19:10 ABG Hemoglobin 15.3 gm/dl (14.0-18.0) 09/07/20 19:10 ABG Carboxyhemoglobin 1.7 % (0.0-5.0) 09/07/20 19:10 ABG Methemoglobin 0.6 % (0.0-1.5) 09/07/20 19:10 Oxyhemoglobin 89.7 % (95.0-99.0) L 09/07/20 19:10 FiO2 21 % 09/07/20 19:10 Sodium 138 mmol/L (137-145) 09/10/20 12:31 Potassium 4.2 mmol/L (3.6-5.0) 09/10/20 12:31 Chloride 99.4 mmol/L (98-107) 09/10/20 12:31 Carbon Dioxide 32 mmol/L (22-30) H 09/10/20 12:31 Anion Gap 11 mmol/L 09/10/20 12:31 BUN 17 mg/dL (9-20) 09/10/20 12:31 Creatinine 0.7 mg/dL (0.8-1.3) L 09/10/20 12:31 Estimated GFR > 60 ml/min 09/10/20 12:31 BUN/Creatinine Ratio 24 % 09/10/20 12:31 Glucose 232 mg/dL (75-100) H 09/10/20 12:31 POC Glucose 304 mg/dL (70-105) H 09/11/20 21:12 Hemoglobin A1c 6.7 % (4-6) H 09/08/20 05:43 Calcium 8.6 mg/dL (8.4-10.2) 09/10/20 12:31 Total Bilirubin 0.30 mg/dL (0.1-1.2) 09/10/20 12:31 Ferritin 404.3 ng/mL (30.0-300.0) H 09/13/20 23:23 Direct Bilirubin < 0.2 mg/dL (0-0.2) 09/10/20 12:31 Indirect Bilirubin 0.1 mg/dL 09/10/20 12:31 AST 40 units/L (5-40) 09/10/20 12:31 ALT 62 units/L (7-56) H 09/10/20 12:31 Alkaline Phosphatase 91 units/L (35-129) 09/10/20 12:31 Lactate Dehydrogenase 259 units/L (91-180) H 09/13/20 23:23 C-Reactive Protein 1.40 mg/dL (0.00-1.30) H 09/13/20 23:23 Total Protein 6.8 g/dL (6.3-8.2) 09/10/20 12:31 Albumin 3.1 g/dL (3.9-5) L 09/10/20 12:31 Albumin/Globulin Ratio 0.8 % 09/10/20 12:31 Procalcitonin < 0.05 ng/mL (<0.15) 09/13/20 23:23 Acetaminophen 12.3 ug/mL (10.0-30.0) 09/07/20 16:55 Coronavirus (PCR) Positive (Negative) A 09/08/20 11:04 [place]/IV: Voiding Method Toilet IV Catheter Type [Right INT / Saline Lock Forearm] IV Catheter Type [Left Forearm INT / Saline Lock ] Active Medications - Current Medications Current Medications: Generic Name Dose Route Start Last Admin Trade Name Freq PRN Reason Stop Dose Admin Acetaminophen 650 mg 09/08/20 05:24 09/11/20 20:39 Acetaminophen 325 Mg Tab PO 650 mg Q4H PRN Administration Pain MILD(1-3)/Fever >100.5/FREEMAN Ascorbic Acid 1,000 mg 09/08/20 10:00 09/14/20 10:48 Ascorbic Acid 500 Mg Tab PO 1,000 mg BID SHILPA Administration Cholecalciferol 5,000 unit 09/08/20 10:00 09/14/20 10:48 Cholecalciferol (Vit D3) 5,000 Unit Tab PO 5,000 unit DAILY SHILPA Administration Dexamethasone 6 mg 09/11/20 10:00 09/14/20 10:48 Dexamethasone 4 Mg Tab PO 09/16/20 12:00 6 mg DAILY SHILPA Administration Enoxaparin Sodium 40 mg 09/08/20 22:00 09/13/20 22:27 Enoxaparin 40 Mg/0.4 Ml Inj SUB-Q 40 mg QDAY@2200 SHILPA Administration Protocol Famotidine 20 mg 09/08/20 10:00 09/14/20 10:47 Famotidine 20 Mg Tab PO 20 mg BID SHILPA Administration Hydromorphone HCl 0.5 mg 09/08/20 05:24 Hydromorphone 1 Mg/1 Ml Inj IV Q3H PRN Pain , Severe (7-10) Ondansetron HCl 4 mg 09/08/20 05:24 Ondansetron 4 Mg/2 Ml Inj IV Q8H PRN Nausea And Vomiting Oxycodone/Acetaminophen 1 tab 09/08/20 05:24 09/10/20 06:44 Oxycodone /Acetaminophen 5-325mg Tab PO 1 tab Q6H PRN Administration Pain, Moderate (4-6) Sodium Chloride 10 ml 09/08/20 10:00 09/14/20 10:48 Sodium Chloride 0.9% 10 Ml Flush Syringe IV 10 ml BID SHILPA Administration Sodium Chloride 10 ml 09/08/20 05:24 Sodium Chloride 0.9% 10 Ml Flush Syringe IV PRN PRN LINE FLUSH Nutrition/Malnutrition Assess - Dietary Evaluation Nutrition/Malnutrition Findings: Nutrition Notes Start: 09/13/20 12:39 Freq: Status: Active Protocol: Document 09/13/20 12:39 (Rec: 09/13/20 12:41 [id number]) Nutrition Notes Need for Assessment generated from: LOS Initial or Follow up Brief Note Other Pertinent Diagnosis COVID, acute respiratory failure, pneunomia Current Diet Regular Subjective/Other Information Screen for LOS. Pt is English speaking and RD unable to call . RN unsure of intakes. Nutrition Intervention Follow-Up By: 09/17/20 Additional Comments FU for intakes
[2020-09-14 15:46] LABS: Basophils # (Auto) 0.1 K/mm3 (0.0-0.1); Basophils % (Auto) 0.6 % (0.0-1.8); Eosinophils % (Auto) 0.2 % (0.0-4.3); Hematocrit 44.4 % (35.5-45.6); Hemoglobin 15.3 gm/dl (11.8-15.2); Lymphocytes # (Auto) 0.9 K/mm3 (1.2-5.4); Lymphocytes % (Auto) 8.5 % (13.4-35.0); Mean Corpuscular HGB Conc 35 % (32-34); Mean Corpuscular Volume 94 fl (84-94); Monocytes # (Auto) 0.4 K/mm3 (0.0-0.8); Monocytes % (Auto) 3.9 % (0.0-7.3); Platelet Count 312 K/mm3 (140-440); Red Blood Count 4.73 M/mm3 (3.65-5.03); Red Cell Distribution Width 13.7 % (13.2-15.2)
[2020-09-14 16:14] LABS: Alanine Aminotransferase 44 units/L (7-56); Blood Urea Nitrogen 18 mg/dL (9-20); Calcium 8.5 mg/dL (8.4-10.2); Hemolysis Index 27
[2020-09-14 16:15] LABS: BUN/Creatinine Ratio 26
[2020-09-14] MEDS: ENOXAPARIN 40 MG/0.4 ML INJ SUB-Q SCH (21:54)
[2020-09-15] MEDS: FAMOTIDINE 20 MG TAB PO SCH ×2 (10:01→21:18)
[2020-09-15] MEDS: CHOLECALCIFEROL (VIT D3) 5,000 UNIT TAB PO SCH (10:01)
[2020-09-15] MEDS: ASCORBIC ACID 500 MG TAB PO SCH ×2 (10:01→21:18)
[2020-09-15] MEDS: DEXAMETHASONE 4 MG TAB PO SCH (10:01)
[2020-09-15] MEDS: ENOXAPARIN 40 MG/0.4 ML INJ SUB-Q SCH (21:18)
--- NOTE | 2020-09-15 21:33 | Progress Note ---
Assessment and Plan - Patient Problems (1) Coronavirus infection Current Visit: Yes Status: Acute Plan to address problem: Coronavirus protocol: Supplemental oxygen, pulse oximetry, nebulizer therapy, IV steroid therapy, IV antibiotic therapy, contact precautions, isolation precautions, wean supplemental oxygen as tolerated (2) Obesity hypoventilation syndrome Current Visit: Yes Status: Acute Plan to address problem: Balanced diet, increase physical activity, outpatient pulmonary follow-up for sleep study. (3) Acute respiratory failure with hypoxia Current Visit: Yes Status: Acute Plan to address problem: Supplemental oxygen, pulse oximetry, chest x-ray, nebulizer therapy, prone positioning while in bed, supportive care. (4) Bilateral pneumonia Current Visit: Yes Status: Acute Plan to address problem: Pneumonia protocol: IV antibiotic therapy, supplemental oxygen, pulse oximetry. Blood culture. (5) DVT prophylaxis Current Visit: Yes Status: Acute Plan to address problem: SCD to bilateral lower extremities while in bed, prophylactic anticoagulation. History Interval history: 55 YO Male HD #7 with acute hypoxemic respiratory failure, coronavirus infection, pneumonia, obesity hypoventilation syndrome. Patient remains on supplemental oxygen. Wean supplemental oxygen as tolerated. Patient acknowledges shortness of breath with exertion. Patient denies pain. No reported nursing events. Hospitalist Physical - Constitutional Vitals: Temp Pulse Resp BP Pulse Ox 98.7 F 49 L 20 140/79 97 09/15/20 19:23 09/15/20 19:23 09/15/20 19:23 09/15/20 19:23 09/15/20 19:23 General appearance: Present: mild distress, well-nourished, obese - EENT Eyes: Present: PERRL, EOM intact ENT: hearing intact - Neck Neck: Present: supple - Respiratory Respiratory: bilateral: diminished - Cardiovascular Rhythm: regular Heart Sounds: Present: S1 & S2 - Extremities Extremities: no ischemia Peripheral Pulses: within normal limits - Abdominal General gastrointestinal: soft, non-tender, non-distended - Integumentary Integumentary: Present: clear, dry - Psychiatric Psychiatric: appropriate mood/affect, cooperative - Neurologic Neurologic: CNII-XII intact Results - Labs CBC & Chem 7: 09/14/20 15:25 09/14/20 15:25 Labs: Laboratory Last Values WBC 11.0 K/mm3 (4.5-11.0) 09/14/20 15:25 RBC 4.73 M/mm3 (3.65-5.03) 09/14/20 15:25 Hgb 15.3 gm/dl (11.8-15.2) H 09/14/20 15:25 Hct 44.4 % (35.5-45.6) 09/14/20 15: MCV 94 fl (84-94) 09/14/20 15: MCH 32 pg (28-32) 09/14/20 15: MCHC 35 % (32-34) H 09/14/20 15:25 RDW 13.7 % (13.2-15.2) 09/14/20 15: Plt Count 312 K/mm3 (140-440) 09/14/20 15: Lymph % (Auto) 8.5 % (13.4-35.0) L 09/14/20 15:25 [place] % (Auto) 3.9 % (0.0-7.3) 09/14/20 15: Eos % (Auto) 0.2 % (0.0-4.3) 09/14/20 15:25 Baso % (Auto) 0.6 % (0.0-1.8) 09/14/20 15:25 Lymph # (Auto) 0.9 K/mm3 (1.2-5.4) L 09/14/20 15:25 [place] # (Auto) 0.4 K/mm3 (0.0-0.8) 09/14/20 15:25 Eos # (Auto) 0.0 K/mm3 (0.0-0.4) 09/14/20 15: Baso # (Auto) 0.1 K/mm3 (0.0-0.1) 09/14/20 15:25 Seg Neutrophils % 86.8 % (40.0-70.0) H 09/14/20 15: Seg Neutrophils # 9.6 K/mm3 (1.8-7.7) H 09/14/20 15:25 D-Dimer 135.00 ng/mlDDU (0-234) 09/13/20 23:23 ABG pH 7.438 pH Units (7.350-7.450) 09/07/20 19:10 ABG pCO2 44.9 mm Hg 09/07/20 19:10 ABG pO2 58.1 mm Hg (80.0-90.0) L 09/07/20 19:10 ABG HCO3 29.7 mmol/L (20.0-26.0) H 09/07/20 19:10 ABG O2 Saturation 91.8 % (95.0-99.0) L 09/07/20 19:10 ABG O2 Content 19.3 (0.0-44) 09/07/20 19:10 ABG Base Excess 4.7 mmol/L (-2.0-3.0) H 09/07/20 19:10 ABG Hemoglobin 15.3 gm/dl (14.0-18.0) 09/07/20 19:10 ABG Carboxyhemoglobin 1.7 % (0.0-5.0) 09/07/20 19:10 ABG Methemoglobin 0.6 % (0.0-1.5) 09/07/20 19:10 Oxyhemoglobin 89.7 % (95.0-99.0) L 09/07/20 19:10 FiO2 21 % 09/07/20 19:10 Sodium 134 mmol/L (137-145) L 09/14/20 15:25 Potassium 4.5 mmol/L (3.6-5.0) 09/14/20 15:25 Chloride 96.1 mmol/L (98-107) L 09/14/20 15:25 Carbon Dioxide 28 mmol/L (22-30) 09/14/20 15:25 Anion Gap 14 mmol/L 09/14/20 15:25 BUN 18 mg/dL (9-20) 09/14/20 15:25 Creatinine 0.7 mg/dL (0.8-1.3) L 09/14/20 15:25 Estimated GFR > 60 ml/min 09/14/20 15:25 BUN/Creatinine Ratio 26 % 09/14/20 15:25 Glucose 297 mg/dL (75-100) H 09/14/20 15:25 POC Glucose 304 mg/dL (70-105) H 09/11/20 21:12 Hemoglobin A1c 6.7 % (4-6) H 09/08/20 05:43 Calcium 8.5 mg/dL (8.4-10.2) 09/14/20 15:25 Ferritin 404.3 ng/mL (30.0-300.0) H 09/13/20 23:23 Total Bilirubin < 0.20 mg/dL (0.1-1.2) 09/14/20 15:25 Direct Bilirubin < 0.2 mg/dL (0-0.2) 09/10/20 12:31 Indirect Bilirubin 0.1 mg/dL 09/10/20 12:31 AST < 5 units/L (5-40) L 09/14/20 15:25 ALT 44 units/L (7-56) 09/14/20 15:25 Alkaline Phosphatase 93 units/L (35-129) 09/14/20 15:25 Lactate Dehydrogenase 259 units/L (91-180) H 09/13/20 23:23 C-Reactive Protein 1.40 mg/dL (0.00-1.30) H 09/13/20 23:23 Total Protein 6.4 g/dL (6.3-8.2) 09/14/20 15:25 Albumin 3.0 g/dL (3.9-5) L 09/14/20 15:25 Albumin/Globulin Ratio 0.9 % 09/14/20 15:25 Procalcitonin < 0.05 ng/mL (<0.15) 09/13/20 23:23 Acetaminophen 12.3 ug/mL (10.0-30.0) 09/07/20 16:55 Coronavirus (PCR) Positive (Negative) A 09/08/20 11:04 Laba/IV: Voiding Method Toilet IV Catheter Type [Right INT / Saline Lock Forearm] IV Catheter Type [Left Forearm INT / Saline Lock ] Active Medications - Current Medications Current Medications: Generic Name Dose Route Start Last Admin Trade Name Freq PRN Reason Stop Dose Admin Acetaminophen 650 mg 09/08/20 05:24 09/11/20 20:39 Acetaminophen 325 Mg Tab PO 650 mg Q4H PRN Administration Pain MILD(1-3)/Fever >100.5/FREEMAN Ascorbic Acid 1,000 mg 09/08/20 10:00 09/15/20 21:18 Ascorbic Acid 500 Mg Tab PO 1,000 mg BID SHILPA Administration Cholecalciferol 5,000 unit 09/08/20 10:00 09/15/20 10:01 Cholecalciferol (Vit D3) 5,000 Unit Tab PO 5,000 unit DAILY SHILPA Administration Dexamethasone 6 mg 09/11/20 10:00 09/15/20 10:01 Dexamethasone 4 Mg Tab PO 09/16/20 12:00 6 mg DAILY SHILPA Administration Enoxaparin Sodium 40 mg 09/08/20 22:00 09/15/20 21:18 Enoxaparin 40 Mg/0.4 Ml Inj SUB-Q 40 mg QDAY@2200 SHILPA Administration Protocol Famotidine 20 mg 09/08/20 10:00 09/15/20 21:18 Famotidine 20 Mg Tab PO 20 mg BID SHILPA Administration Hydromorphone HCl 0.5 mg 09/08/20 05:24 Hydromorphone 1 Mg/1 Ml Inj IV Q3H PRN Pain , Severe (7-10) Ondansetron HCl 4 mg 09/08/20 05:24 Ondansetron 4 Mg/2 Ml Inj IV Q8H PRN Nausea And Vomiting Oxycodone/Acetaminophen 1 tab 09/08/20 05:24 09/10/20 06:44 Oxycodone /Acetaminophen 5-325mg Tab PO 1 tab Q6H PRN Administration Pain, Moderate (4-6) Sodium Chloride 10 ml 09/08/20 10:00 09/15/20 21:19 Sodium Chloride 0.9% 10 Ml Flush Syringe IV 10 ml BID SHILPA Administration Sodium Chloride 10 ml 09/08/20 05:24 Sodium Chloride 0.9% 10 Ml Flush Syringe IV PRN PRN LINE FLUSH Nutrition/Malnutrition Assess - Dietary Evaluation Nutrition/Malnutrition Findings: Nutrition Notes Start: 09/13/20 12:39 Freq: Status: Active Protocol: Document 09/13/20 12:39 (Rec: 09/13/20 12:41 [id number]) Nutrition Notes Need for Assessment generated from: LOS Initial or Follow up Brief Note Other Pertinent Diagnosis COVID, acute respiratory failure, pneunomia Current Diet Regular Subjective/Other Information Screen for LOS. Pt is Dutch speaking and RD unable to call . RN unsure of intakes. Nutrition Intervention Follow-Up By: 09/17/20 Additional Comments FU for intakes
[2020-09-16] MEDS: FAMOTIDINE 20 MG TAB PO SCH ×2 (10:18→21:15)
[2020-09-16] MEDS: DEXAMETHASONE 4 MG TAB PO SCH (10:18)
[2020-09-16] MEDS: ASCORBIC ACID 500 MG TAB PO SCH ×2 (10:18→21:16)
[2020-09-16] MEDS: CHOLECALCIFEROL (VIT D3) 5,000 UNIT TAB PO SCH (14:31)
--- NOTE | 2020-09-16 15:32 | Progress Note ---
Assessment and Plan Cultures: SARS CoV2 PCR: Positive A/P: 55/M with: #Severe COVID-19 pneumonia: Markers improving. #Acute hypoxic respiratory failure: Improving remains on nasal cannula 6 L #Obesity Recs: -continue IV/PO Dexamethasone 6 mg daily x 10 days -Completed -prophylactic anticoagulation based on d-dimer per hospital protocol -trend ferritin, LDH, d-dimer, CRP every 2-3 days for risk stratification and to assess disease progression -markers ordered -Check 6-minute walking test, consider home O2 Nichole Lopez MD [facility] ([facility]) Office [phone] Subjective Date of service: 09/16/20 Principal diagnosis: COVID-19 pneumonia acute respiratory failure. Interval history: Remains on nasal cannula O2 6 L, no fever. Objective - Exam Narrative Exam: Deferred to minimize COVID-19 transmission in the setting of pandemic. - Constitutional Vitals: Vital Signs Temp Pulse Resp BP Pulse Ox 98.1 F 53 L 16 109/66 97 09/16/20 11:52 09/16/20 11:52 09/16/20 11:52 09/16/20 11:52 09/16/20 11:52 Temperature -Last 24 Hours Temperature 98.1 F Temperature 98.4 F Temperature 98.0 F Temperature 98.7 F - Labs CBC & Chem 7: 09/14/20 15:25 09/14/20 15:25
--- NOTE | 2020-09-16 17:47 | Progress Note ---
Assessment and Plan - Patient Problems (1) Coronavirus infection Current Visit: Yes Status: Acute Plan to address problem: Coronavirus protocol: Supplemental oxygen, pulse oximetry, nebulizer therapy, IV steroid therapy, IV antibiotic therapy, contact precautions, isolation precautions, wean supplemental oxygen as tolerated (2) Obesity hypoventilation syndrome Current Visit: Yes Status: Acute Plan to address problem: Balanced diet, increase physical activity, outpatient pulmonary follow-up for sleep study. (3) Acute respiratory failure with hypoxia Current Visit: Yes Status: Acute Plan to address problem: Supplemental oxygen, pulse oximetry, chest x-ray, nebulizer therapy, prone positioning while in bed, supportive care. (4) Bilateral pneumonia Current Visit: Yes Status: Acute Plan to address problem: Pneumonia protocol: IV antibiotic therapy, supplemental oxygen, pulse oximetry. Blood culture. (5) DVT prophylaxis Current Visit: Yes Status: Acute Plan to address problem: SCD to bilateral lower extremities while in bed, prophylactic anticoagulation. History Interval history: 55 YO Male HD #8 with acute hypoxemic respiratory failure, coronavirus infection, pneumonia, obesity hypoventilation syndrome. Patient remains on supplemental oxygen, and was placed on 4 L today. Continue to wean supplemental oxygen as tolerated and if patient is able to maintain oxygen saturation on current oxygen level will plan discharge in a.m. with home oxygen. Patient acknowledges shortness of breath with exertion. Patient denies pain. No reported nursing events. Hospitalist Physical - Constitutional Vitals: Temp Pulse Resp BP Pulse Ox 98.1 F 53 L 16 109/66 97 09/16/20 11:52 09/16/20 11:52 09/16/20 11:52 09/16/20 11:52 09/16/20 11:52 General appearance: Present: mild distress, well-nourished, obese - EENT Eyes: Present: PERRL, EOM intact ENT: hearing intact - Neck Neck: Present: supple - Respiratory Respiratory: bilateral: diminished, rhonchi - Cardiovascular Rhythm: regular Heart Sounds: Present: S1 & S2 - Extremities Extremities: no ischemia Peripheral Pulses: within normal limits - Abdominal General gastrointestinal: soft, non-tender, non-distended - Integumentary Integumentary: Present: clear, erythema - Psychiatric Psychiatric: appropriate mood/affect, cooperative - Neurologic Neurologic: CNII-XII intact Results - Labs CBC & Chem 7: 09/14/20 15:25 09/14/20 15:25 Labs: Laboratory Last Values WBC 11.0 K/mm3 (4.5-11.0) 09/14/20 15: RBC 4.73 M/mm3 (3.65-5.03) 09/14/20 15:25 Hgb 15.3 gm/dl (11.8-15.2) H 09/14/20 15:25 Hct 44.4 % (35.5-45.6) 09/14/20 15: MCV 94 fl (84-94) 09/14/20 15:25 MCH 32 pg (28-32) 09/14/20 15: MCHC 35 % (32-34) H 09/14/20 15: RDW 13.7 % (13.2-15.2) 09/14/20 15: Plt Count 312 K/mm3 (140-440) 09/14/20 15:25 Lymph % (Auto) 8.5 % (13.4-35.0) L 09/14/20 15: Hunt % (Auto) 3.9 % (0.0-7.3) 09/14/20 15: Eos % (Auto) 0.2 % (0.0-4.3) 09/14/20 15: Baso % (Auto) 0.6 % (0.0-1.8) 09/14/20 15:25 Lymph # (Auto) 0.9 K/mm3 (1.2-5.4) L 09/14/20 15:25 Hunt # (Auto) 0.4 K/mm3 (0.0-0.8) 09/14/20 15:25 Eos # (Auto) 0.0 K/mm3 (0.0-0.4) 09/14/20 15:25 Baso # (Auto) 0.1 K/mm3 (0.0-0.1) 09/14/20 15: Seg Neutrophils % 86.8 % (40.0-70.0) H 09/14/20 15:25 Seg Neutrophils # 9.6 K/mm3 (1.8-7.7) H 09/14/20 15:25 D-Dimer 135.00 ng/mlDDU (0-234) 09/13/20 23:23 ABG pH 7.438 pH Units (7.350-7.450) 09/07/20 19:10 ABG pCO2 44.9 mm Hg 09/07/20 19:10 ABG pO2 58.1 mm Hg (80.0-90.0) L 09/07/20 19:10 ABG HCO3 29.7 mmol/L (20.0-26.0) H 09/07/20 19:10 ABG O2 Saturation 91.8 % (95.0-99.0) L 09/07/20 19:10 ABG O2 Content 19.3 (0.0-44) 09/07/20 19:10 ABG Base Excess 4.7 mmol/L (-2.0-3.0) H 09/07/20 19:10 ABG Hemoglobin 15.3 gm/dl (14.0-18.0) 09/07/20 19:10 ABG Carboxyhemoglobin 1.7 % (0.0-5.0) 09/07/20 19:10 ABG Methemoglobin 0.6 % (0.0-1.5) 09/07/20 19:10 Oxyhemoglobin 89.7 % (95.0-99.0) L 09/07/20 19:10 FiO2 21 % 09/07/20 19:10 Sodium 134 mmol/L (137-145) L 09/14/20 15:25 Potassium 4.5 mmol/L (3.6-5.0) 09/14/20 15:25 Chloride 96.1 mmol/L (98-107) L 09/14/20 15:25 Carbon Dioxide 28 mmol/L (22-30) 09/14/20 15:25 Anion Gap 14 mmol/L 09/14/20 15:25 BUN 18 mg/dL (9-20) 09/14/20 15:25 Creatinine 0.7 mg/dL (0.8-1.3) L 09/14/20 15:25 Estimated GFR > 60 ml/min 09/14/20 15:25 BUN/Creatinine Ratio 26 % 09/14/20 15:25 Glucose 297 mg/dL (75-100) H 09/14/20 15:25 POC Glucose 304 mg/dL (70-105) H 09/11/20 21:12 Hemoglobin A1c 6.7 % (4-6) H 09/08/20 05:43 Calcium 8.5 mg/dL (8.4-10.2) 09/14/20 15:25 Ferritin 404.3 ng/mL (30.0-300.0) H 09/13/20 23:23 Total Bilirubin < 0.20 mg/dL (0.1-1.2) 09/14/20 15:25 Direct Bilirubin < 0.2 mg/dL (0-0.2) 09/10/20 12:31 Indirect Bilirubin 0.1 mg/dL 09/10/20 12:31 AST < 5 units/L (5-40) L 09/14/20 15:25 ALT 44 units/L (7-56) 09/14/20 15:25 Alkaline Phosphatase 93 units/L (35-129) 09/14/20 15:25 Lactate Dehydrogenase 259 units/L (91-180) H 09/13/20 23:23 C-Reactive Protein 1.40 mg/dL (0.00-1.30) H 09/13/20 23:23 Total Protein 6.4 g/dL (6.3-8.2) 09/14/20 15:25 Albumin 3.0 g/dL (3.9-5) L 09/14/20 15:25 Albumin/Globulin Ratio 0.9 % 09/14/20 15:25 Procalcitonin < 0.05 ng/mL (<0.15) 09/13/20 23:23 Acetaminophen 12.3 ug/mL (10.0-30.0) 09/07/20 16:55 Coronavirus (PCR) Positive (Negative) A 09/08/20 11:04 Alba/IV: Voiding Method Toilet IV Catheter Type [Right INT / Saline Lock Forearm] IV Catheter Type [Left Forearm INT / Saline Lock ] Active Medications - Current Medications Current Medications: Generic Name Dose Route Start Last Admin Trade Name Freq PRN Reason Stop Dose Admin Acetaminophen 650 mg 09/08/20 05:24 09/11/20 20:39 Acetaminophen 325 Mg Tab PO 650 mg Q4H PRN Administration Pain MILD(1-3)/Fever >100.5/FREEMAN Ascorbic Acid 1,000 mg 09/08/20 10:00 09/16/20 10:18 Ascorbic Acid 500 Mg Tab PO 1,000 mg BID SHILPA Administration Cholecalciferol 5,000 unit 09/08/20 10:00 09/16/20 14:31 Cholecalciferol (Vit D3) 5,000 Unit Tab PO 5,000 unit DAILY SHILPA Administration Enoxaparin Sodium 40 mg 09/08/20 22:00 09/15/20 21:18 Enoxaparin 40 Mg/0.4 Ml Inj SUB-Q 40 mg QDAY@2200 SHILPA Administration Protocol Famotidine 20 mg 09/08/20 10:00 09/16/20 10:18 Famotidine 20 Mg Tab PO 20 mg BID SHILPA Administration Hydromorphone HCl 0.5 mg 09/08/20 05:24 Hydromorphone 1 Mg/1 Ml Inj IV Q3H PRN Pain , Severe (7-10) Ondansetron HCl 4 mg 09/08/20 05:24 Ondansetron 4 Mg/2 Ml Inj IV Q8H PRN Nausea And Vomiting Oxycodone/Acetaminophen 1 tab 09/08/20 05:24 09/10/20 06:44 Oxycodone /Acetaminophen 5-325mg Tab PO 1 tab Q6H PRN Administration Pain, Moderate (4-6) Sodium Chloride 10 ml 09/08/20 10:00 09/16/20 10:19 Sodium Chloride 0.9% 10 Ml Flush Syringe IV 10 ml BID SHILPA Administration Sodium Chloride 10 ml 09/08/20 05:24 Sodium Chloride 0.9% 10 Ml Flush Syringe IV PRN PRN LINE FLUSH Nutrition/Malnutrition Assess - Dietary Evaluation Nutrition/Malnutrition Findings: Nutrition Notes Start: 09/13/20 12:39 Freq: Status: Active Protocol: Document 09/13/20 12:39 (Rec: 09/13/20 12:41 [id number]) Nutrition Notes Need for Assessment generated from: LOS Initial or Follow up Brief Note Other Pertinent Diagnosis COVID, acute respiratory failure, pneunomia Current Diet Regular Subjective/Other Information Screen for LOS. Pt is Tunisian speaking and RD unable to call . RN unsure of intakes. Nutrition Intervention Follow-Up By: 09/17/20 Additional Comments FU for intakes
[2020-09-16 20:29] LABS: C-Reactive Protein 0.5 mg/dL (0.00-1.30)
[2020-09-16] MEDS: ENOXAPARIN 40 MG/0.4 ML INJ SUB-Q SCH (21:15)
[2020-09-17] MEDS: FAMOTIDINE 20 MG TAB PO SCH (10:53)
[2020-09-17] MEDS: CHOLECALCIFEROL (VIT D3) 5,000 UNIT TAB PO SCH (10:53)
[2020-09-17] MEDS: ASCORBIC ACID 500 MG TAB PO SCH (10:53)
--- NOTE | 2020-09-17 15:38 | Progress Note ---
Assessment and Plan Cultures: SARS CoV2 PCR: Positive A/P: 55/M with: #Bilateral pneumonia: Secondary to COVID-19 #Acute hypoxic respiratory failure: remains on oxygen, up to HFNC. #Obesity Recs: -continue IV/PO Dexamethasone 6 mg daily x 10 days -completed 5 days of IV remdesivir -prophylactic anticoagulation based on d-dimer per hospital protocol -trend ferritin, LDH, d-dimer, CRP every 2-3 days for risk stratification and to assess disease progression Caden Izquierdo MD, FACP [facility] ([facility] O: [phone] F: [phone] Subjective Date of service: 09/17/20 Principal diagnosis: COVID-19 pneumonia acute respiratory failure. Interval history: No fever. Remains on oxygen, on HFNC. Objective - Exam Narrative Exam: Physical Exam (reviewed in chart to minimize risk of transmission) Constitutional: deferred Head, Ears, Nose: deferred Eyes: deferred Neck: deferred Oral: deferred Cardiovascular: deferred Respiratory: deferred GI: deferred Musculoskeletal: deferred Skin: deferred Hem/Lymphatic: deferred Psych: deferred Neurological: deferred - Constitutional Vitals: Vital Signs Temp Pulse Resp BP Pulse Ox 99.2 F 63 20 105/68 95 09/17/20 11:39 09/17/20 11:39 09/17/20 11:39 09/17/20 11:39 09/17/20 11:39 Temperature -Last 24 Hours Temperature 99.2 F Temperature 97.0 F Temperature 97.5 F Temperature 98.5 F - Labs CBC & Chem 7: 09/14/20 15:25 09/14/20 15:25 Labs: Abnormal lab results 09/16/20 09/16/20 Range/Units 19:16 19:16 Ferritin 395.1 H (30.0-300.0) ng/mL Lactate Dehydrogenase 217 H (91-180) units/L
[2020-09-17 18:10] VITALS: BP 123/80
== END 2020-09-17 18:30 | disposition home or self-care (01) | DRG 177 ==
LOC: ED 15:58 → 3A 19:04
PROVIDERS: ADMIT Internal Medicine; ATTEND Internal Medicine
PROC: XW033E5 Introduction of Remdesivir Anti-infective into Peripheral Vein, Percutaneous Approach, New Technology Group 5 (ICD-10-PCS; principal; 2020-09-09)
DX: U07.1 COVID-19 (principal); J12.89 Other viral pneumonia; J96.01 Acute respiratory failure with hypoxia; E66.2 Morbid (severe) obesity with alveolar hypoventilation; E87.1 Hypo-osmolality and hyponatremia; Z68.41 Body mass index [BMI] 40.0-44.9, adult; Z72.89 Other problems related to lifestyle
CPT/HCPCS: 36415; 71046; 80048; 80053; 80076; 80320; 82728; 82803; 82947; 82962; 83036; 83615; 84145; 85025; 85379; 86140; 90471; 94760; 96365; 96375; 96376; G0378; G0480; J0456; J0696; J1100; J1650; J7030; J7050; J8540; U0003